=== PATIENT | male | born 1975 | race African-American/Black ===

== ENCOUNTER 2017-07-16 07:26 | Day surgery (SDC) | payer OTHER ==
[~2017-07-16] VITALS: Ht 190.5 cm; Wt 110.5 kg
--- NOTE | ~2017-07-16 | OP ---
PATIENT NAME: MARIUSZ CRUZ MEDICAL RECORD: [id number] :73 LOCATION:D.OPS ADMISSION DATE: SURGEON: AKASH MUNOZ MD DATE OF OPERATION: 07/16/2017 PREOPERATIVE DIAGNOSIS: Hematochezia. POSTOPERATIVE DIAGNOSES: 1. Hematochezia. 2. Two colorectal polyps measuring 7 mm and 9 mm, both were sessile. 3. [place] tag with probable anal fissure. PROCEDURE: 1. Total colonoscopy to cecum. 2. Hot biopsy forceps polypectomies times 2. SURGEON: Akash Munoz MD KNOCKOUT MAN: None. BLOOD LOSS: Minimal. ANESTHESIA: IV sedation. COMPLICATIONS: None. The risks, possible complications and alternatives to the procedure were explained to the patient. He elects to proceed. ENDOSCOPIC COURSE: The patient was conveyed to the endoscopy suite electively on 07/16/2017. IV sedation was induced by the anesthesia staff. The patient was placed in the Mccormick position. A digital rectal examination was performed. A colonoscope was inserted through the anus. It was easily advanced to the cecum. The prep was adequate. I slowly withdrew the endoscope. I dragged the folds. A combination of the direct imaging as well as narrow band imaging was utilized to examine the shannon of the colon and rectum. Two polyps were noted. These were removed utilizing the hot biopsy forceps polypectomy technique. A retroflexed view was obtained in the rectum. This revealed enlarged internal hemorrhoids. I then unretroflexed the scope and removed it under direct vision. I will see the patient in my office in 2-3 weeks. If the polyps are adenomatous, I will plan to put the patient on a surveillance colonoscopy regimen with the next colonoscopy to take place in 1 year and then every 3 years for the rest of the patient's life. TRANSINT:[id number] Voice Confirmation ID: [id number] DOCUMENT ID: [id number] OPERATIVE REPORT [id number] MARIUSZ CRUZ ROBERT MD CC: [id number] DICTATION DATE: 07/16/17 1032 PROCESS IMPROVEMENT CONSULTANT: 07/16/17 1059 [facility] [address] [place] [address]
[2017-07-16] MEDS ORDERED: MULTIPLE VITAMI1 TA1 PO (08:22)
[2017-07-16] MEDS ORDERED: VITAMIN E1000 UNI1 PO (08:22)
[2017-07-16] MEDS ORDERED: VITAMIN B COMPL1 TAB PO (08:22)
[2017-07-16 08:32] VITALS: BP 149/80; Ht 190.5 cm; Wt 110.5 kg
== END 2017-07-16 11:40 | disposition home or self-care (01) ==
LOC: D.OPS 07:26
DX: K63.5 Polyp of colon (principal); K64.4 Residual hemorrhoidal skin tags; K64.8 Other hemorrhoids; Z01.812 Encounter for preprocedural laboratory examination